=== PATIENT | male | born 1940 | race Two or more races ===

== ENCOUNTER 2017-05-13 22:16 | Emergency (ER) | payer OTHER, MEDICARE ==
--- NOTE | 2017-05-13 22:31 | CPEKG ---
Heart Rate: 82 RR Interval: 732 P-R Interval: 140 QRSD Interval: 100 QT Interval: 372 QTC Interval: 435 P [place]: 9 QRS [place]: 29 T Wave [place]: -22 EKG Severity - ABNORMAL ECG - EKG Impression: SINUS RHYTHM EKG Impression: NONSPECIFIC T ABNORMALITIES, INFERIOR LEADS Electronically Signed By: David Rowe 13-May-2017 23:29:16
--- NOTE | 2017-05-13 22:41 | EDPHY ---
H & P Stated Complaint: CP, epigastric pain, L arm tingling, burping a lot since the am. Time Seen by Provider: 05/13/17 22:25 HPI/ROS: Chief Complaint: Chest pain HPI: 77-year-old male woke with some chest pain in his left chest radiating to his left arm pit. It is been constant since he woke up this morning. It is now better. At worst is an 8/10 now is a 3/10. It is still in aching. There is no aggravating or alleviating factors. He has had this several times in the past as negative workups before. It is not worse with inspiration. Is not exertional. It is not substernal. Is described as a dull ache. No fevers or chills. No cough. No nausea or vomiting. He has not taken any medications for this. Does not have any associated shortness of breath. No recent falls or injuries. He does not have a past medical history of hypertension or hyperlipidemia. He takes no medications. No allergies medications. He has no family history of coronary artery disease. ROS: 10 point Review of Systems is negative except as noted in the HPI. PMH: Denies Medications: None Allergies: No known drug allergies Social History: No smoking, occasional alcohol, no recreational drug use Family History: non-contributory Physical Exam: Gen: Awake, Alert, No Distress HEENT: Nose: no rhinorrhea Eyes: PERRLA, EOMI Mouth: Moist mucosa Neck: Supple, no JVD Chest: He has tenderness in the left parasternal region around ribs 6 with tenderness extending to his anterior axillary line. Pain is reproducing his presenting complaint. There is no flail segment, no deformity., lungs clear to auscultation Heart: S1, S2 normal, no murmur Abd: Soft, non-tender, no guarding Back: no CVA tenderness, no midline tenderness Ext: no edema, non-tender Skin: no rash Neuro: CN II-XII intact, Sensation grossly intact, Strength 5/5 in bilateral upper and lower extremities - Personal History Current Tetanus/Diphtheria Vaccine: Unsure Current Tetanus Diphtheria and Acellular Pertussis (TDAP): Unsure - Medical/Surgical History Hx Asthma: No Hx Chronic Respiratory Disease: No Hx Diabetes: No Hx Cardiac Disease: No Hx Renal Disease: No Hx Cirrhosis: No Hx Alcoholism: No Hx HIV/AIDS: No Hx Splenectomy or Spleen Trauma: No Other PMH: Denies significant history, 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 - Social History Smoking Status: Former smoker Constitutional: Initial Vital Signs Temperature (C) 36.9 C 05/13/17 22:19 Heart Rate 79 05/13/17 22:19 Respiratory Rate 16 05/13/17 22:19 Blood Pressure 161/100 H 05/13/17 22:19 O2 Sat (%) 96 05/13/17 22:19 O2 Delivery Mode Room Air Allergies/Adverse Reactions: No Known Allergies Allergy (Verified 05/13/17 22:21) Home Medications: Medication Instructions Recorded NK [No Known Home Meds] 05/13/17 Medical Decision Making - Diagnostics EKG Interpretation: ECG time 10:29 p.m., sinus rhythm with a rate of 82, normal axis, normal intervals, no acute ST or T-wave changes. Impression: Normal ECG. Imaging Results: Imaging Impressions Chest X-Ray 05/13/17 22:37 Impression: Peribronchial thickening with left basilar linear subsegmental atelectasis versus scar. Clinical correlation and follow-up are suggested. Imaging: I viewed and interpreted images myself ED Course/Re-evaluation: 77-year-old male with reproducible left-sided chest pain which has been present all day. Troponin is undetectable. His ECG is normal. Chest x-ray is negative for acute process. Symptoms consistent with musculoskeletal chest pain he has no risk factors for coronary disease. Will be discharged with follow up with primary care physician for outpatient stress testing, return for worsening symptoms. - Data Points Laboratory Results: Laboratory Results 05/13/17 22:31 05/13/17 22:31 05/13/17 05/13/17 22:31 22:31 WBC 7.80 10^3/uL 10^3/uL (3.80-9.50) RBC 4.94 10^6/uL 10^6/uL (4.40-6.38) Hgb 15.3 g/dL g/dL (13.7-17.5) Hct 44.8 % % (40.0-51.0) MCV 90.7 fL fL (81.5-99.8) MCH 31.0 pg pg (27.9-34.1) MCHC 34.2 g/dL g/dL (32.4-36.7) RDW 13.0 % % (11.5-15.2) Plt Count 256 10^3/uL 10^3/uL (150-400) MPV 8.9 fL fL (8.7-11.7) Neut % (Auto) 63.5 % % (39.3-74.2) Lymph % (Auto) 19.6 % % (15.0-45.0) Granite % (Auto) 9.4 % % (4.5-13.0) Eos % (Auto) 6.5 % % (0.6-7.6) Baso % (Auto) 0.6 % % (0.3-1.7) Nucleat RBC Rel Count 0.0 % % (0.0-0.2) Absolute Neuts (auto) 4.95 10^3/uL 10^3/uL (1.70-6.50) Absolute Lymphs (auto) 1.53 10^3/uL 10^3/uL (1.00-3.00) Absolute Monos (auto) 0.73 10^3/uL 10^3/uL (0.30-0.80) Absolute Eos (auto) 0.51 10^3/uL H 10^3/uL (0.03-0.40) Absolute Basos (auto) 0.05 10^3/uL 10^3/uL (0.02-0.10) Absolute Nucleated RBC 0.00 10^3/uL 10^3/uL (0-0.01) Immature Gran % 0.4 % % (0.0-1.1) Immature Gran # 0.03 10^3/uL 10^3/uL (0.00-0.10) Sodium 142 mEq/L mEq/L (134-144) Potassium 4.0 mEq/L mEq/L (3.5-5.2) Chloride 105 mEq/L mEq/L (97-110) Carbon Dioxide 24 mEq/l mEq/l (22-31) Anion Gap 13 mEq/L mEq/L (8-16) BUN 14 mg/dL mg/dL (7-23) Creatinine 1.0 mg/dL mg/dL (0.7-1.3) Estimated GFR > 60 Glucose 118 mg/dL H mg/dL (70-100) Calcium 9.4 mg/dL mg/dL (8.5-10.4) Troponin I Pending Medications Given: Discontinued Medications Aspirin (Aspirin) 324 mg PO EDNOW ONE Stop: 05/13/17 23:00 Last Admin: 05/14/17 00:11 Dose: Not Given Morphine Sulfate (Morphine) 2 mg IVP ONCE ONE Stop: 05/13/17 22:39 Last Admin: 05/13/17 23:08 Dose: 2 mg Departure - Departure Disposition: Home, Routine, Self-Care Clinical Impression: Chest wall pain Condition: Good Instructions: Chest Wall Pain (ED) Additional Instructions: Return to the emergency depart for increasing chest pain, shortness of breath , lightheadedness, fainting, fevers, chills, or any other concerns. Follow up with primary care physician in 2-3 days for re-evaluation. He will need an outpatient stress test. Referrals: Alba Mejia MD [place] [place] - As per Instructions
[2017-05-13 22:47] LABS: % IMMATURE GRANULYOCYTES 0.4 % (0.0-1.1); ABSOLUTE IMMATURE GRANULOCYTES 0.03 10^3/uL (0.00-0.10); ADD DIFF? NO; ADD MORPH? NO; ADD SCAN? NO; ATYPICAL LYMPHOCYTE FLAG 20 (0-99); FRAGMENT RBC FLAG 0 (0-99); HEMATOCRIT 44.8 % (40.0-51.0); HEMOGLOBIN 15.3 g/dL (13.7-17.5); LEFT SHIFT FLG 0 (0-99); LIPEMIA HEMOLYSIS FLAG 90 (0-99); MEAN CELL HEMOGLOBIN CONCENTR. 34.2 g/dL (32.4-36.7); MEAN CELL VOLUME 90.7 fL (81.5-99.8); MEAN PLATELET VOLUME 8.9 fL (8.7-11.7); PLATELET CLUMPS FLAG 0 (0-99); PLATELET COUNT 256 10^3/uL (150-400); RED BLOOD CELL COUNT 4.94 10^6/uL (4.40-6.38)
[2017-05-13 22:52] LABS: ANION GAP 13 mEq/L (8-16); CALCIUM 9.4 mg/dL (8.5-10.4); CARBON DIOXIDE 24 mEq/l (22-31); CHLORIDE 105 mEq/L (97-110); GLOMERULAR FILTRATION RATE > 60; GLUCOSE 118 mg/dL (70-100); SODIUM 142 mEq/L (134-144)
[2017-05-13] MEDS ORDERED: ASPIRIN 81 MG CHEWABLE TAB PO ONE (22:59)
[2017-05-13 23:04] LABS: TROPONIN I < 0.012 ng/mL (0-0.034)
[2017-05-14 00:20] VITALS: O2SAT 94
[2017-05-14 00:32] VITALS: BP 136/88; PULSE 65; RESP 16; TEMP 98.6
== END 2017-05-14 00:32 | disposition home or self-care (01) ==
DX: R07.89 Other chest pain (principal); Z87.891 Personal history of nicotine dependence